=== PATIENT | female | born 1965 | race Caucasian/White ===

== ENCOUNTER → 2023-06-28 13:17 | Outpatient (REF) | payer BC, SELFPAY | LOC: CLAB 13:17 | PROVIDERS: ATTENDING PHYSICIAN Obstetrics & Gynecology Gynecology | DX: L90.0 Lichen sclerosus et atrophicus (principal) | CPT/HCPCS: 88305 ==

== ENCOUNTER → 2023-08-16 08:55 | Outpatient (REF) | payer BC, SELFPAY | LOC: HWRAD 08:55 | PROVIDERS: ATTENDING PHYSICIAN Obstetrics & Gynecology Gynecology; FAMILY PHYSICIAN Family Medicine | DX: Z12.31 Encounter for screening mammogram for malignant neoplasm of breast (principal); Z78.0 Asymptomatic menopausal state | CPT/HCPCS: 77063; 77067; 77080 ==

== ENCOUNTER → 2023-08-30 06:36 | Day surgery (SDC) | payer BC, SELFPAY | LOC: GI 06:36 | PROVIDERS: ATTENDING PHYSICIAN Internal Medicine Gastroenterology | DX: Z12.11 Encounter for screening for malignant neoplasm of colon (principal); K57.30 Diverticulosis of large intestine without perforation or abscess without bleeding; D12.0 Benign neoplasm of cecum; D12.3 Benign neoplasm of transverse colon; K62.1 Rectal polyp; R11.0 Nausea; K44.9 Diaphragmatic hernia without obstruction or gangrene; K31.7 Polyp of stomach and duodenum; Z98.0 Intestinal bypass and anastomosis status; Z98.84 Bariatric surgery status | CPT/HCPCS: 45385; 45381; 45380; 43239; 88305; 88342 ==

== ENCOUNTER → 2023-10-14 09:22 | Outpatient (REF) | payer BC, SELFPAY ==
[2023-10-14 12:13] LABS: Hematocrit 39.7 % (37.0-47.0); Hemoglobin 13.1 g/dL (12.0-16.0); Mean Corpuscular Hgb 28.6 pg (27.0-31.0); Mean Corpuscular Volume 86.7 fL (81.0-99.0); Mean Platelet Volume 10.2 fL (7.4-10.4); Platelet Count 293 10^3/uL (130-400); Red Blood Cell Count 4.58 10^6/uL (4.20-5.40); Red Cell Dist. Width 12.9 % (11.5-14.5); White Blood Cell Count 7.4 10^3/uL (4.8-10.8)
[2023-10-14 12:14] LABS: ALT (SGPT) 37 U/L (0-35); AST (SGOT) 38 U/L (14-36); Albumin 4.3 g/dl (3.5-5.0); Alkaline Phosphatase 94 U/L (38-126); Blood Urea Nitrogen 29 mg/dl (7-17); Calcium 9.8 mg/dl (8.4-10.2); Carbon Dioxide 27 mmol/L (22-30); Glucose 95 mg/dl (70-99); HDL Cholesterol 70 mg/dl; LDL Cholesterol, Calculated 63 mg/dl; Total Bilirubin 0.4 mg/dl (0.2-1.3); Total Cholesterol 149 mg/dl (50-199); Total Protein 6.8 g/dl (6.3-8.2); Triglyceride 84 mg/dl (10-149); Very Low Density Lipoprotein 16 mg/dl (0-30); eGFR > 60.00
[2023-10-14 12:27] LABS: Chloride 103 mmol/L (98-107); Potassium 4.3 mmol/L (3.5-5.1); Sodium 141 mmol/L (135-145)
[2023-10-14 12:30] LABS: Free T4 1.05 ng/dl (0.78-2.19); Vitamin D, 25-OH*** 61.1 ng/mL (30-80)
[2023-10-14 12:43] LABS: TSH 1.83 uIU/ml (0.47-4.68)
[2023-10-14 13:14] LABS: Glycohemoglobin (HgbA1c) 5.5 % (4.0-5.6)
== END ==
LOC: HWLAB 09:22
PROVIDERS: ATTENDING PHYSICIAN Obstetrics & Gynecology Gynecology; FAMILY PHYSICIAN Family Medicine; REFERRING PHYSICIAN Family Medicine
DX: E78.2 Mixed hyperlipidemia (principal); R53.83 Other fatigue; E55.9 Vitamin D deficiency, unspecified; R73.01 Impaired fasting glucose; M81.0 Age-related osteoporosis without current pathological fracture; Z79.899 Other long term (current) drug therapy; E03.9 Hypothyroidism, unspecified
CPT/HCPCS: 36415; 80053; 80061; 82306; 83036; 84439; 84443; 85027

== ENCOUNTER → 2024-05-19 08:32 | Outpatient (REF) | payer BC, SELFPAY ==
[2024-05-19 10:11] LABS: Blood Urea Nitrogen 25 mg/dl (7-17); Calcium 8.9 mg/dl (8.4-10.2); Carbon Dioxide 29 mmol/L (22-30); Chloride 103 mmol/L (98-107); Glucose 61 mg/dl (70-99); Magnesium 2.2 mg/dl (1.6-2.3); Potassium 4.4 mmol/L (3.5-5.1); Sodium 141 mmol/L (135-145); eGFR > 60.00
== END ==
LOC: RAD 08:32
PROVIDERS: ATTENDING PHYSICIAN Internal Medicine Cardiovascular Disease; FAMILY PHYSICIAN Family Medicine
DX: R94.31 Abnormal electrocardiogram [ECG] [EKG] (principal); R00.2 Palpitations; R06.02 Shortness of breath
CPT/HCPCS: 36415; 80048; 83735; 93306; 93922; 93925

== ENCOUNTER → 2024-10-16 06:34 | Outpatient (REF) | payer BC, SELFPAY ==
[2024-10-16 07:15] LABS: % Basophils 0.9 % (0-2); % Eosinophils 2.1 % (0-6); % Immature Granulocytes 0.1 % (0-0.5); % Lymphocytes 26.6 % (20.5-51.1); % Monocytes 8.5 % (1.7-9.3); % Neutrophils 61.8 % (42.2-75.2); Absolute Basophils 0.1 10^3/uL (0-0.2); Absolute Eosinophils 0.2 10^3/uL (0-0.7); Absolute Monocytes 0.6 10^3/uL (0.1-0.6); Absolute Neutrophils 4.6 10^3/uL (1.4-6.5); Hematocrit 36.6 % (37.0-47.0); Hemoglobin 12.2 g/dL (12.0-16.0); Mean Corp Hgb Conc. 33.3 g/dL (33.0-37.0); Mean Corpuscular Hgb 28.7 pg (27.0-31.0); Mean Corpuscular Volume 86.1 fL (81.0-99.0); Mean Platelet Volume 9.6 fL (7.4-10.4); Nucleated Red Blood Cells % 0 %; Platelet Count 306 10^3/uL (130-400); Red Blood Cell Count 4.25 10^6/uL (4.20-5.40); Red Cell Dist. Width 12.9 % (11.5-14.5); White Blood Cell Count 7.5 10^3/uL (4.8-10.8)
[2024-10-16 08:05] LABS: ALT (SGPT) 24 U/L (0-35); AST (SGOT) 24 U/L (14-36); Albumin 4.2 g/dl (3.5-5.0); Alkaline Phosphatase 87 U/L (38-126); Blood Urea Nitrogen 23 mg/dl (7-17); Calcium 9.5 mg/dl (8.4-10.2); Carbon Dioxide 26 mmol/L (22-30); Chloride 111 mmol/L (98-107); Glucose 93 mg/dl (70-99); HDL Cholesterol 70 mg/dl; LDL Cholesterol, Calculated 64 mg/dl; Potassium 4.5 mmol/L (3.5-5.1); Sodium 145 mmol/L (135-145); Total Bilirubin 0.4 mg/dl (0.2-1.3); Total Cholesterol 149 mg/dl (50-199); Total Protein 6.7 g/dl (6.3-8.2); Triglyceride 79 mg/dl (10-149); Very Low Density Lipoprotein 15 mg/dl (0-30); eGFR > 60.00
[2024-10-16 08:48] LABS: Vitamin D, 25-OH*** 52.3 ng/mL (30-80)
[2024-10-16 09:02] LABS: TSH 4.08 uIU/ml (0.47-4.68)
[2024-10-16 10:07] LABS: Glycohemoglobin (HgbA1c) 5.4 % (4.0-5.6)
== END ==
LOC: REG 06:34
PROVIDERS: ATTENDING PHYSICIAN Family Medicine
DX: E78.2 Mixed hyperlipidemia (principal); R53.83 Other fatigue; E55.9 Vitamin D deficiency, unspecified; R73.09 Other abnormal glucose
CPT/HCPCS: 36415; 80053; 80061; 82306; 83036; 84443; 85025

== ENCOUNTER → 2024-11-09 17:27 | Outpatient (REF) | payer BC, SELFPAY | LOC: WDC 17:27 | PROVIDERS: ATTENDING PHYSICIAN Obstetrics & Gynecology Gynecology; FAMILY PHYSICIAN Family Medicine | DX: Z12.31 Encounter for screening mammogram for malignant neoplasm of breast (principal) | CPT/HCPCS: 77063; 77067 ==

== ENCOUNTER 2024-12-19 08:19 | Emergency (ER) | payer BC, SELFPAY ==
[2024-12-19 08:26] VITALS: BP 130/64
--- NOTE | 2024-12-19 11:24 | ED.GENMED ---
History of Present Illness
<Nicolle Flores DO, Resident - Last Filed: 12/19/24 15:46>
General
Chief Complaint: Musculo-Skeletal Complaint
Source: patient
Exam Limitations: none
Time Seen by Provider: 12/19/24 10:52
Nursing documentation reviewed up to this point in time: agreed with
History of Present Illness
History of Present Illness:
Patient is a 51-year-old female past medical history of left meniscus repair, gastric bypass, GERD presenting with right medial knee pain. This morning, patient was walking down the stairs and felt a pop and pain in her right medial knee that she
describes as identical pain to her left meniscus tear from 5 years ago. Patient had surgical correction of her left medial meniscus. Patient is currently unable to bear weight on her right leg. Patient has been taking Tylenol and Motrin but is
not helping. Patient notes swelling and limited range of motion on flexion extension. Patient recently drove back from the [place] and noticed that her right leg and knee were stiff yesterday. She was not having any knee pain prior to this
incident. [facility]'s test positive for pain on internal rotation and valgus pressure. 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
Review of Systems
<Nicolle Flores DO, Resident - Last Filed: 12/19/24 15:46>
Review of Systems
Allergies reviewed?: Yes
All Other Systems: ROS reviewed and negative except as documented in HPI and ROS
Constitutional: Reports no symptoms
EENT: Reports no symptoms
Respiratory: Reports no symptoms
Cardiac: Reports no symptoms
ABD/GI: Reports no symptoms
: Reports no symptoms
Musculoskeletal: Reports joint pain (Right medial knee pain)
Skin: Reports no symptoms
Neurological: Reports no symptoms
Endocrine: Reports no symptoms
Hematologic/Lymphatic: Reports no symptoms
Psychiatric: Reports no symptoms
Phy Exam
<Nicolle Flores DO, Resident - Last Filed: 12/19/24 15:46>
General Physical Exam
General Presentation: well appearing and no apparent distress
General age: appears stated age
General Skin: warm and dry
General Habitus: obese
General Mental: alert
Cardiovascular Exam
Cardiovascular Exam: regular rate/rhythm
Heart Sounds: normal
Pulmonary Exam
Pulmonary Exam: lungs clear, no respiratory distress, no crackles and no wheezing
Gastrointestinal Exam
Gastrointestinal Exam: normal bowel sounds
Neurological Exam
Neurological Exam: alert and oriented x3
Musculoskeletal Exam
Musculoskeletal Exam: other (Right knee limited range of motion. Mild swelling noted. Pain on internal rotation and valgus force. No pain noted on external rotation. Negative anterior and posterior drawer tests)
Skin Exam
Skin Exam: normal color and warm/dry
Course
<Nicolle Flores DO, Resident - Last Filed: 12/19/24 15:46>
Orders/Labs/Results
Orders:
Orders
12/19/24 08:30
Knee, Right 4 or More Views [CR Knee- Right 4 Or More View*] Urgent
Comment:
Reason For Exam: pain, injury
12/19/24 11:46
Ketorolac [Toradol] 15 mg IM NOW STA
12/19/24 12:31
Knee Immobilizer Right-Treatme ONCE
12/19/24 12:36
Crutches-Treatment ONCE
Vital Signs
Initial and Last Documented VS:
Initial Vital Signs
Temp Pulse Resp BP Pulse Ox
97.8 F 71 22 130/64 97
12/19/24 08:26 12/19/24 08:26 12/19/24 08:26 12/19/24 08:26 12/19/24 08:26
Last Documented Vital Signs
Temp Pulse Resp BP Pulse Ox
97.8 F 71 22 130/64 97
12/19/24 08:26 12/19/24 08:26 12/19/24 08:26 12/19/24 08:26 12/19/24 11:35
<Aminata Holley DO - Last Filed: 12/21/24 19:14>
Orders/Labs/Results
Orders:
Orders
12/19/24 08:30
Knee, Right 4 or More Views [CR Knee- Right 4 Or More View*] Urgent
Comment:
Reason For Exam: pain, injury
12/19/24 11:46
Ketorolac [Toradol] 15 mg IM NOW STA
12/19/24 12:31
Knee Immobilizer Right-Treatme ONCE
12/19/24 12:36
Crutches-Treatment ONCE
Vital Signs
Initial and Last Documented VS:
Initial Vital Signs
Temp Pulse Resp BP Pulse Ox
97.8 F 71 22 130/64 97
12/19/24 08:26 12/19/24 08:26 12/19/24 08:26 12/19/24 08:26 12/19/24 08:26
Last Documented Vital Signs
Temp Pulse Resp BP Pulse Ox
97.8 F 71 22 130/64 97
12/19/24 08:26 12/19/24 08:26 12/19/24 08:26 12/19/24 08:26 12/19/24 11:35
<Nicolle Flores DO, Resident - Last Filed: 12/19/24 15:46>
MDM/Problems Addressed
Differential Diagnosis Includes:
R medial meniscus strain/tear
MDM/Problems Addressed:
Patient has positive test for medial meniscus rotation with valgus force. Negative anterior posterior drawer test. Will give Toradol now for pain. Will recommend patient for knee immobilizer +/- crutches, with follow-up to orthopedics.
<Nicolle Flores DO, Resident - Last Filed: 12/19/24 15:46>
*Pulse Oximetry
SaO2: 97
Oxygen Mode of Delivery: Room air
Patient hypoxic: no
*Critical Care Note
Total Time (30-74mins, 75-104mins- exclusive of procedures): Not Applicable
ED Attending Note
<Nicolle Flores DO, Resident - Last Filed: 12/19/24 15:46>
-
Portions of this chart may have been created with voice recognition software.� Occasional wrong word or��sound alike� substitutions may have occurred due to the inherent limitations of voice recognition software.
<Aminata Holley DO - Last Filed: 12/21/24 19:14>
ED Attending Note
Patient seen and examined by attending physician: Yes
I performed the substantive portion of visit, reviewed & personally made and approve the management plan that is documented in note by myself or MARITA.: Yes
I performed a history and physical exam of patient and discussed management with resident, I reviewed resident's note and agree with documented findings and plan of care.: Yes
ED Attending Note:
59-year-old female presenting to the emergency department for right knee pain. Patient reports this morning she was going down the stairs and felt a pop in her knee medially. She notes history of left medial meniscus tear, feels similarly. She
has been unable to bear weight. Has been taking Tylenol and Motrin without significant relief. Denies numbness or tingling to the extremity. Denies fever. Denies direct trauma. Vital signs are normal.
On exam patient resting comfortably, no acute distress or discomfort. On external knee exam, no significant swelling, no deformity. No erythema or warmth. Range of motion is limited secondary to pain, able to range to about 90 degrees. Painless
rotation, felt most prominent to the medial aspect of the knee. Suspect ligamentous injury versus soft tissue injury. X-ray obtained, no obvious fracture or dislocation. No infectious concerns. No neurovascular compromise. Will place in knee
immobilizer and provide crutches with plan for outpatient orthopedic follow-up. Communicated that may need an MRI given her prior history. Tramadol prescribed for pain. Return precautions discussed
ADDENDUM: X-ray read by radiology after disposition, possible hairline fracture in the lateral aspect of the tibial condyle. Low suspicion given pain is more medial. Patient was called on 12/21 and made aware of results, notes that she saw
orthopedics yesterday and they also saw that x-ray read. She notes that the orthopedist was pressing on the lateral aspect of her and explained that she did not think that that was a true finding. She has already scheduled an MRI.
Discharge Plan
Departure
Patient Disposition: Home (Routine Discharge)
Date of Disposition: 12/19/24
Time of Disposition: 12:35
Patient with high blood pressure during this ER visit?: No
Condition: Good
Discharge Problem:
Injury of knee, right
Instructions: Knee Immobilizer (DC), Ligament Injuries in the Knee
Prescriptions:
New
tramadol 25 mg tablet
25 mg PO Q6H PRN (Reason: Pain) Qty: 12 0RF
Referrals:
George Saldana MD [Active, Orthopedics]
Freddie Jones MD [Active, Orthopedics]
Yana Sullivan PA [Family Provider, [facility]]
Activity Restrictions/Additional Instructions:
You were seen in the emergency department for right knee pain
You were found to have an x-ray of your knee that did not show any sign of fracture or dislocation. You were placed in a knee immobilizer and given crutches. Please continue to take Tylenol and Motrin as needed for pain. You were prescribed
tramadol for severe pain. Please follow-up with orthopedic doctor for potential MRI
Please follow-up closely with your primary care physician.
Return to the emergency department for any worsening of your symptoms, or any development of chest pain, difficulty breathing, abdominal pain with persistent vomiting and inability to tolerate food or liquid by mouth (concern for dehydration),
weakness, headache or confusion, fever greater than 100.4, or any additional symptoms that are concerning to you.
Thank you for choosing [facility].
Interventions
Interventions:
*Risk Screen - Suicide Last Done: 12/19/24 08:26
*General Assessment Last Done: 12/19/24 08:26
*Neglect/Abuse Screening Last Done: 12/19/24 08:26
*ED- Fall Risk Assessment Last Done: 12/19/24 12:00
*Nursing Disposition Last Done: 12/19/24 13:09
ED-Musculoskeletal Assessment Last Done: 12/19/24 13:03
Discharge Date and Time
Discharge Date/Time: 12/19/24 13:10
Print Language: VINCENTIAN
[2024-12-19] MEDS: TORADOL 15 MG IM (12:01)
== END 2024-12-19 13:10 | disposition home or self-care (01) ==
LOC: EMR 08:19
PROVIDERS: EMERGENCY PHYSICIAN Student in an Organized Health Care Education/Training Program; FAMILY PHYSICIAN Family Medicine
DX: S89.91XA Unspecified injury of right lower leg, initial encounter (principal); X58.XXXA Exposure to other specified factors, initial encounter; Z98.84 Bariatric surgery status
CPT/HCPCS: 29505; 96372; 99284; 73564

== ENCOUNTER → 2024-12-24 06:52 | Outpatient (REF) | payer BC, SELFPAY | LOC: PAVMRI 06:52 | PROVIDERS: ATTENDING PHYSICIAN Orthopaedic Surgery; FAMILY PHYSICIAN Family Medicine | DX: M25.561 Pain in right knee (principal) | CPT/HCPCS: 73721 ==